=== PATIENT | male | born 1975 | race Two or more races ===

== ENCOUNTER 2022-09-21 18:49 | Emergency (ER) | payer OTHER ==
[~2022-09-21] VITALS: Ht 170.2 cm; Wt 115.0 kg
[2022-09-21 19:32] LABS: Basophils # (auto) 0 10 ^3/uL (0-0.2); Basophils % (auto) 0.2 % (0.0-2.0); Eosinophils # (auto) 0 10 ^3/uL (0-0.8); Eosinophils % (auto) 0.1 % (0.0-7.0); Hematocrit 46.7 % (41.0-53.0); Hemoglobin 15.5 g/dL (13.5-17.5); Lymphocytes # (auto) 1.5 10 ^3/uL (0.4-5.4); Lymphocytes % (auto) 10.9 % (10.0-50.0); Mean Corpuscular Hemoglobin 30.5 pg (28.0-32.0); Mean Corpuscular Hgb Conc. 33.3 g/dL (32.0-36.0); Mean Corpuscular Volume 91.7 fL (80.0-100.0); Monocytes # (auto) 1.7 10 ^3/uL (0-1.3); Monocytes % (auto) 12.5 % (0.0-12.0); Neutrophils # (auto) 10.5 10 ^3/uL (1.6-8.6); Neutrophils % (auto) 76.3 % (37.0-80.0); Nucleated Red Blood Cells % 0.1 %; Red Blood Cells 5.09 10^6/uL (4.5-5.90); White Blood Cell 13.7 10^3/uL (4.4-10.8)
[2022-09-21 19:45] LABS: Albumin 3.7 g/dL (3.4-5.0); Calcium 8.6 mg/dL (8.5-10.1); Potassium 3.6 mmol/L (3.5-5.1)
[2022-09-21] MEDS ORDERED: ONDANSETRON ODT 4 MG TAB PO ONE (19:45)
[2022-09-21] MEDS ORDERED: MAALOX PLUS or MAALOX 30 ML PO ONE (19:45)
[2022-09-21 19:47] LABS: BUN/Creatinine Ratio 17.1
[2022-09-21 19:54] LABS: Bilirubin, Total 0.3 mg/dL (0.2-1.0); Total Protein 7.9 g/dL (6.4-8.2)
[2022-09-21] MEDS ORDERED: AMOXICILLIN/CLAVUL 875 MG TAB PO ONE (20:45)
[2022-09-21] MEDS ORDERED: ONDA-144 PO (22:14)
[2022-09-21] MEDS ORDERED: HYDR-4798 PO (22:14)
[2022-09-21] MEDS ORDERED: AMOX-277 PO (22:14)
[2022-09-22 00:05] VITALS: BP 114/66
== END 2022-09-22 00:14 | disposition home or self-care (01) ==
LOC: ER 18:49 → EDBD 18:49 → ER 09-22 00:14
DX: K57.92 Diverticulitis of intestine, part unspecified, without perforation or abscess without bleeding (principal); I10 Essential (primary) hypertension
CPT/HCPCS: 36415; 74176; 80053; 83690; 85025; 99284; Q0162